=== PATIENT | female | born 1940 | race Caucasian/White ===

== ENCOUNTER → 2022-07-19 | Outpatient (CLI) | payer MEDICARE, OTHER | LOC: ORTHO 09:30 | PROVIDERS: ATTEND Orthopaedic Surgery | DX: S42.201A Unspecified fracture of upper end of right humerus, initial encounter for closed fracture (principal); X58.XXXA Exposure to other specified factors, initial encounter | CPT/HCPCS: 99203 ==

== ENCOUNTER → 2022-07-26 | Outpatient (CLI) | payer MEDICARE, OTHER ==
--- NOTE | 2022-07-26 15:48 | Diagnostic Imaging Report ---
INDICATION: Follow-up right shoulder fracture. TIME OF EXAM: 9:33 a.m. Comparison is made with outside radiographs from 07/12/2022. FINDINGS: Comminuted fracture of the proximal humerus is again noted. Fracture lines remain visible without significant callus formation. Glenohumeral alignment is maintained. Acromioclavicular alignment is normal. IMPRESSION: Comminuted right proximal humerus fracture. Overall alignment is anatomic. Fracture lines remain clearly visible. Dictated by: Dictated on workstation # [id number]
== END ==
LOC: ORTHO 09:25
PROVIDERS: ATTEND Orthopaedic Surgery
DX: S42.231D 3-part fracture of surgical neck of right humerus, subsequent encounter for fracture with routine healing (principal); X58.XXXD Exposure to other specified factors, subsequent encounter
CPT/HCPCS: 73030; G0463; 99213

== ENCOUNTER → 2022-08-09 | Outpatient (CLI) | payer OTHER, MEDICARE ==
--- NOTE | 2022-08-09 17:03 | Diagnostic Imaging Report ---
HISTORY: Right humerus fracture. TECHNIQUE: 2 views of the right shoulder COMPARISON: 07/26/2022 FINDINGS: Redemonstrated is a comminuted fracture of the proximal right humerus extending across the surgical neck of the humerus and into the greater tuberosity. There is anterior and superior displacement of the humeral shaft. There are healing changes present and alignment is unchanged since the prior study. Glenohumeral alignment is improved since the previous exam. There is mild degenerative change in the acromioclavicular joint. IMPRESSION: 1. Healing, comminuted, displaced fracture of the proximal right humerus. Dictated by: Dictated on workstation # [id number]
== END ==
LOC: ORTHO 09:47
PROVIDERS: ATTEND Orthopaedic Surgery
DX: S42.241D 4-part fracture of surgical neck of right humerus, subsequent encounter for fracture with routine healing (principal); X58.XXXD Exposure to other specified factors, subsequent encounter
CPT/HCPCS: 73030; G0463; 99213

== ENCOUNTER → 2022-09-06 | Outpatient (CLI) | payer OTHER, MEDICARE ==
--- NOTE | 2022-09-06 10:11 | Diagnostic Imaging Report ---
EXAMINATION: Right shoulder 2 or more views HISTORY: Fracture COMPARISON: 08/09/2022 FINDINGS: There is callus formation about a comminuted fracture of the proximal right humerus. No dislocation. No change in alignment. No new fracture. IMPRESSION: 1. Callus formation about a healing fracture of the proximal right humerus. No change in alignment. Dictated by: Dictated on workstation # [id number]
== END ==
LOC: ORTHO 09:43
PROVIDERS: ATTEND Orthopaedic Surgery
DX: M25.741 Osteophyte, right hand (principal); S42.241D 4-part fracture of surgical neck of right humerus, subsequent encounter for fracture with routine healing; X58.XXXD Exposure to other specified factors, subsequent encounter
CPT/HCPCS: 73030; G0463; 99213

== ENCOUNTER → 2022-10-09 | Outpatient (CLI) | payer OTHER, MEDICARE | LOC: ORTHO 09:24 | PROVIDERS: ATTEND Orthopaedic Surgery | DX: S42.201A Unspecified fracture of upper end of right humerus, initial encounter for closed fracture (principal); X58.XXXA Exposure to other specified factors, initial encounter | CPT/HCPCS: 99213 ==

== ENCOUNTER → 2022-11-20 | Outpatient (CLI) | payer OTHER, MEDICARE ==
--- NOTE | 2022-11-20 10:31 | Diagnostic Imaging Report ---
INDICATION: Followup humeral fracture. COMPARISON: 09/06/2022. FINDINGS: Two radiographic views of the right shoulder were obtained and again show gross deformity of the right humeral head, consistent with nonacute fracture. Fracture fragments are in stable alignment when compared to prior exams. Glenohumeral and acromioclavicular joint spaces are preserved. Included portions of the right hemithorax are clear. No unexpected radiopaque foreign bodies are seen. IMPRESSION: Redemonstration of old fracture of the proximal right humerus as above. Dictated by: Dictated on workstation # [id number]
== END ==
LOC: ORTHO 09:23
PROVIDERS: ATTEND Orthopaedic Surgery
DX: S42.241D 4-part fracture of surgical neck of right humerus, subsequent encounter for fracture with routine healing (principal); X58.XXXD Exposure to other specified factors, subsequent encounter
CPT/HCPCS: 73030; G0463; 99213